=== PATIENT | female | born 1970 | race African-American/Black ===

== ENCOUNTER 2021-06-18 14:03 | Inpatient (IN) | payer BC, OTHER ==
[~2021-06-18 14:03] MED LIST: Iopamidol-370 76% 500 ML 1 ML ONE
[2021-06-18] MEDS ORDERED: HYDROmorphone 2 MG/ML VIAL ONE (14:27)
[2021-06-18 14:56] LABS: #Lymphocytes 1.9 thou/uL (1.20-3.40); #Monocytes 1.7 thou/uL (0.11-0.59); #Neutrophils 12.2 thou/uL (1.40-6.50); %Basophils 0.3 % (0.0-1.0); %Eosinophils 0.3 % (0.0-10.0); %Monocytes 10.5 % (0.0-10.0); Hemoglobin 7.9 g/dL (12.0-16.0); Mean Corpuscular HGB CONC 31.3 g/dL (32.0-36.0); Mean Corpuscular Hemoglobin 23.8 pg (27.0-31.0); Mean Platelet Volume 7.2 fL (7.4-10.4); Platelet Count 1018 thou/uL (130-400); RBC Distribution Width 19.7 % (11.5-14.5); White Blood Cell (WBC) Count 15.9 thou/uL (4.8-10.8)
[2021-06-18 15:10] LABS: ALT (SGPT) 16 U/L (8-55); AST (SGOT) 44 U/L (5-34); Alkaline Phosphatase 132 U/L (40-110); Anion Gap 17 mmol/L (10-20); BUN (Urea Nitrogen) 13 mg/dL (9.8-20.1); Bilirubin, Total 1.2 mg/dL (0.2-1.2); Calc. Creatinine Clearance 0 mL/min (70-130); Calcium 9.6 mg/dL (7.8-10.44); Carbon Dioxide 25 mmol/L (22-29); Chloride 92 mmol/L (98-107); Globulin 5.8 g/dL (2.4-3.5); Glucose 126 mg/dL (70-105); Potassium 3.8 mmol/L (3.5-5.1); Protein, Total 8.8 g/dL (6.0-8.3); Sodium 130 mmol/L (136-145)
[2021-06-18 15:15] LABS: Anisocytosis SLIGHT = 6-15 cells (100X) (0-5/hpf); Hypochromia SLIGHT = 6-15 cells (100X) (0-5/hpf); MDiff Complete? YES; Microcytosis SLIGHT = 6-15 cells (100X) (0-5/hpf); Platelet Morphology Comment Appears Increased; Polychromasia SLIGHT = 2-3 cells (100X) (0-2/hpf); Reflex for Review?? YES; Target Cells MODERATE= 6-15 cells (100X) (0-1/hpf)
[2021-06-18 17:40] LABS: #Lymphocytes 1.9 thou/uL (1.20-3.40); #Monocytes 1.4 thou/uL (0.11-0.59); #Neutrophils 10.7 thou/uL (1.40-6.50); %Basophils 0.1 % (0.0-1.0); %Eosinophils 0.3 % (0.0-10.0); %Lymphocytes 13.6 % (21.0-51.0); Hemoglobin 7.9 g/dL (12.0-16.0); Mean Corpuscular HGB CONC 31.1 g/dL (32.0-36.0); Mean Corpuscular Hemoglobin 23.4 pg (27.0-31.0); Mean Corpuscular Volume 75.4 fL (78.0-98.0); Mean Platelet Volume 7.4 fL (7.4-10.4); Platelet Count 1028 thou/uL (130-400); RBC Distribution Width 19.5 % (11.5-14.5); Red Blood Cell (RBC) Count 3.36 mill/uL (4.20-5.40); White Blood Cell (WBC) Count 14.1 thou/uL (4.8-10.8)
[2021-06-18 19:54] LABS: SARS-CoV-2 NAA Rapid Test Not Detected (NotDetected)
[2021-06-18] MEDS ORDERED: Acetaminophen 650 MG Suppository PR PRN (21:12)
[2021-06-18] MEDS ORDERED: Ondansetron ODT 4 MG TAB PO PRN (21:12)
[2021-06-18] MEDS ORDERED: Ondansetron PF 4 MG/2 ML Vial IVP PRN (21:12)
[2021-06-18] MEDS ORDERED: Furosemide 40 MG/4 ML VIAL SLOW IVP SCH (21:30)
[2021-06-18] MEDS ORDERED: Dextrose 50% Abboject 50 ML SYRINGE SLOW IVP PRN (21:33)
[2021-06-18] MEDS ORDERED: HumaLOG 300 UNITS/3 ML VIAL SC PRN ×2 (21:33)
[2021-06-18] MEDS ORDERED: Dextrose 5% in Water 1,000 ML IV PRN (21:33)
[2021-06-18] MEDS ORDERED: hydrALAZINE 20 MG/ML VIAL SLOW IVP PRN (21:35)
[2021-06-18 22:49] VITALS: BMI 35.3
[2021-06-19] MEDS: Acetaminophen 325 MG TAB PO PRN ×2 (01:42→14:53)
[2021-06-19 02:22] LABS: Bilirubin Negative (Negative); Blood, Urine 2+ (Negative); Clarity Clear (Clear); Glucose, Urine (Dipstick) Normal (Negative); Ketone, Urine Negative (Negative); Leukocyte 250 Leu/uL (Negative); Nitrite Negative (Negative); Protein, Urine (Dipstick) 20 mg/dL (Neg-Trace); Squamous Epithelial 0-3 HPF (0-3); Urobilinogen Normal mg/dL (Less than 2); WBC/HPF 21-50 HPF (0-3)
[2021-06-19 02:34] LABS: Bacteria/HPF 1+ HPF (None Seen)
[2021-06-19 02:36] LABS: Urine Culture Reflex Yes Yes
[2021-06-19] MEDS ORDERED: VANCOMYCIN 1.25 GM/250 ML BAG 1.25 GM in Premix Bag 1 BAG IVPB SCH (04:39)
[2021-06-19 05:21] LABS: Hemoglobin A1c 6.5 % (4.0-6.0)
[2021-06-19] MEDS ORDERED: Piperacillin/Tazobactam 3.375 GM in Sodium Chloride 0.9% 100 ML IVPB SCH (05:30)
[2021-06-19 05:32] LABS: #Basophils 0.1 thou/uL (0.0-0.2); #Eosinphils 0.1 thou/uL (0.0-0.7); #Lymphocytes 1.9 thou/uL (1.20-3.40); #Monocytes 1.9 thou/uL (0.11-0.59); #Neutrophils 11.3 thou/uL (1.40-6.50); %Basophils 0.4 % (0.0-1.0); %Eosinophils 0.4 % (0.0-10.0); %Lymphocytes 12.6 % (21.0-51.0); %Monocytes 12.5 % (0.0-10.0); %Neutrophils 74.2 % (42.0-75.0); Hemoglobin 8.5 g/dL (12.0-16.0); Mean Corpuscular HGB CONC 30.8 g/dL (32.0-36.0); Mean Corpuscular Hemoglobin 23.3 pg (27.0-31.0); Mean Corpuscular Volume 75.8 fL (78.0-98.0); Mean Platelet Volume 7.4 fL (7.4-10.4); Platelet Count 1053 thou/uL (130-400); RBC Distribution Width 19.2 % (11.5-14.5); Red Blood Cell (RBC) Count 3.65 mill/uL (4.20-5.40); White Blood Cell (WBC) Count 15.2 thou/uL (4.8-10.8)
[2021-06-19 05:41] LABS: Iron 64 ug/dL (50-170); Iron Binding Capacity, Total 204 mcg/dL (265-497)
[2021-06-19 05:45] LABS: Anion Gap 13 mmol/L (10-20); BUN (Urea Nitrogen) 15 mg/dL (9.8-20.1); Calc. Creatinine Clearance 117 mL/min (70-130); Calcium 9.4 mg/dL (7.8-10.44); Carbon Dioxide 26 mmol/L (22-29); Chloride 93 mmol/L (98-107); Glucose 147 mg/dL (70-105); Iron 63 ug/dL (50-170); Iron Binding Capacity, Total 206 mcg/dL (265-497); Potassium 3.3 mmol/L (3.5-5.1); Sodium 129 mmol/L (136-145)
[2021-06-19] MEDS ORDERED: Vancomycin 1 GM in Premix Bag 1 BAG IVPB SCH (06:00)
[2021-06-19] MEDS: Enoxaparin Sodium 40 MG/0.4 ML SYRINGE SC SCH (07:50)
[2021-06-19] MEDS ORDERED: NIFEdipine XL 60 MG TAB PO SCH (08:15)
[2021-06-19] MEDS ORDERED: Insulin Regular 300 UNITS/3 ML VIAL SC PRN (08:15)
[2021-06-19] MEDS: Bisoprolol Fumarate 5 MG TAB PO SCH (08:35)
[2021-06-19] MEDS ORDERED: Iopamidol 370 76% 100 ML VIAL ONE (09:54)
[2021-06-19] MEDS ORDERED: Potassium Chloride 20 MEQ TAB PO SCH (10:00)
[2021-06-19] MEDS: NS 0.9% w/ 20 MEQ KCL 1,000 ML IV SCH ×2 (11:39→21:07)
[2021-06-19 11:47] LABS: Reference Lab Name LABCORP
[2021-06-19] MEDS: Piperacillin/Tazobactam 3.375 GM in Sodium Chloride 0.9% 100 ML IVPB SCH ×2 (14:56→21:08)
[2021-06-19] MEDS ORDERED: GoLYTELY 4,000 ml Bottle PO SCH (15:00)
[2021-06-19 17:09] LABS: ALT (SGPT) 30 U/L (8-55); AST (SGOT) 110 U/L (5-34); Albumin 2.8 g/dL (3.5-5.0); Alkaline Phosphatase 155 U/L (40-110); Anion Gap 14 mmol/L (10-20); BUN (Urea Nitrogen) 13 mg/dL (9.8-20.1); Bilirubin, Total 2.1 mg/dL (0.2-1.2); Calc. Creatinine Clearance 118 mL/min (70-130); Calcium 9.7 mg/dL (7.8-10.44); Carbon Dioxide 24 mmol/L (22-29); Chloride 95 mmol/L (98-107); Globulin 5.7 g/dL (2.4-3.5); Glucose 145 mg/dL (70-105); Potassium 4.1 mmol/L (3.5-5.1); Protein, Total 8.5 g/dL (6.0-8.3); Sodium 129 mmol/L (136-145)
[2021-06-19] MEDS ORDERED: Zolpidem Tartrate 5 MG TAB PO SCH (21:00)
[2021-06-20] MEDS: Piperacillin/Tazobactam 3.375 GM in Sodium Chloride 0.9% 100 ML IVPB SCH (06:05)
[2021-06-20] MEDS: Enoxaparin Sodium 40 MG/0.4 ML SYRINGE SC SCH (07:08)
[2021-06-20] MEDS: Bisoprolol Fumarate 5 MG TAB PO SCH (07:08)
[2021-06-20 08:06] LABS: #Eosinphils 0.1 thou/uL (0.0-0.7); #Lymphocytes 1.4 thou/uL (1.20-3.40); #Monocytes 1.7 thou/uL (0.11-0.59); #Neutrophils 10.7 thou/uL (1.40-6.50); %Basophils 0.2 % (0.0-1.0); %Eosinophils 0.7 % (0.0-10.0); %Lymphocytes 10.2 % (21.0-51.0); %Monocytes 12.3 % (0.0-10.0); %Neutrophils 76.6 % (42.0-75.0); Hemoglobin 8.1 g/dL (12.0-16.0); Mean Corpuscular HGB CONC 30.4 g/dL (32.0-36.0); Mean Corpuscular Hemoglobin 23.4 pg (27.0-31.0); Mean Platelet Volume 7.1 fL (7.4-10.4); Platelet Count 1133 thou/uL (130-400); RBC Distribution Width 19.1 % (11.5-14.5); Red Blood Cell (RBC) Count 3.44 mill/uL (4.20-5.40); White Blood Cell (WBC) Count 13.9 thou/uL (4.8-10.8)
[2021-06-20 08:15] LABS: Albumin (w/Testosterone Panel) 2.6 g/dL
[2021-06-20 08:19] LABS: Anion Gap 17 mmol/L (10-20); BUN (Urea Nitrogen) 15 mg/dL (9.8-20.1); Calc. Creatinine Clearance 126 mL/min (70-130); Calcium 9.2 mg/dL (7.8-10.44); Carbon Dioxide 25 mmol/L (22-29); Chloride 95 mmol/L (98-107); Glucose 135 mg/dL (70-105); Potassium 3.8 mmol/L (3.5-5.1); Sodium 133 mmol/L (136-145)
[2021-06-20] MEDS ORDERED: PROPOFOL 200 MG/20 ML VIAL ONE (08:20)
[2021-06-20] MEDS ORDERED: Lidocaine 1% PF 5 ML VIAL ONE (08:20)
[2021-06-20 08:31] LABS: CRP (Inflammatory) 32.61 mg/dL (= or < 0.5)
[2021-06-20 08:41] LABS: Sex Hormone Binding Globulin 21.1 nmol/L (26-188); Testosterone, Free 63.7 pg/mL (50-110); Testosterone, Total 203.1 ng/dL (12-36)
[2021-06-20 08:41] LABS: Hypochromia SLIGHT = 6-15 cells (100X) (0-5/hpf); MDiff Complete? YES; Microcytosis SLIGHT = 6-15 cells (100X) (0-5/hpf); Platelet Morphology Comment Appears Increased; Polychromasia SLIGHT = 2-3 cells (100X) (0-2/hpf)
[2021-06-20 14:27] VITALS: BP 156/72; TEMP 98.3
[2021-06-20] MEDS: NS 0.9% w/ 20 MEQ KCL 1,000 ML IV SCH (14:31)
[2021-06-28 16:40] LABS: Normetanephrine,Pl 948.8 pg/mL (0.0-136.8)
== END 2021-06-20 15:05 | disposition home or self-care (01) | DRG 811 ==
LOC: ERS 14:03 → 2SE 18:17 → OBSVTOIN 18:17
PROVIDERS: ADMIT Specialist; ATTEND Internal Medicine
PROC: 30233N1 Transfusion of Nonautologous Red Blood Cells into Peripheral Vein, Percutaneous Approach (ICD-10-PCS; 2021-06-18)
PROC: 0DJ08ZZ Inspection of Upper Intestinal Tract, Via Natural or Artificial Opening Endoscopic (ICD-10-PCS; principal; 2021-06-20)
PROC: 0DJD8ZZ Inspection of Lower Intestinal Tract, Via Natural or Artificial Opening Endoscopic (ICD-10-PCS; 2021-06-20)
DX: D50.9 Iron deficiency anemia, unspecified (principal); I50.31 Acute diastolic (congestive) heart failure; N39.0 Urinary tract infection, site not specified; E87.1 Hypo-osmolality and hyponatremia; E11.9 Type 2 diabetes mellitus without complications; E27.8 Other specified disorders of adrenal gland; I11.0 Hypertensive heart disease with heart failure; D47.3 Essential (hemorrhagic) thrombocythemia; Z20.822 Contact with and (suspected) exposure to COVID-19; E04.1 Nontoxic single thyroid nodule; Z98.51 Tubal ligation status
CPT/HCPCS: 0240U; 36415; 36416; 36430; 71045; 71275; 74178; 76536; 80048; 80053; 81001; 82024; 82088; 82274; 82384; 82607; 82627; 82728; 82746; 83036; 83540; 83550; 83605; 83835; 83880; 84270; 84403; 84443; 84484; 85025; 85060; 85652; 86140; 86850; 86900; 86901; 87040; 87086; 90471; 90732; 93005; 93306; G0009; J0360; J1170; J1650; J1815; J1940; J2543; J2704; J3370; J3480; J3490; P9016; Q9967